=== PATIENT | male | born 1985 | race Caucasian/White ===

== ENCOUNTER 2020-01-04 15:10 | Observation (INO) | payer OTHER ==
[~2020-01-04] VITALS: Ht 162.6 cm; Wt 85.9 kg
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
--- NOTE | 2020-01-04 19:59 | NUR ---
DR DURAN CALLED AN UPDATED ON PTS CONTINUED AGITATION, UNWILLINGNESS TO KEEP LEADS OR BLOOD PRESSURE CUFF ON. LIME SLAKER AT BEDSIDE AT THIS TIME.
--- NOTE | 2020-01-04 20:00 | NUR ---
MANOJ HELD PER POISON CONTROL RECOMMENDATION. NOTIFIED.
--- NOTE | 2020-01-04 20:30 | NUR ---
4 MG OF PRN IV ATIVAN GIVEN AND PRECEDEX DRIP INITIATED AT 0.2 MCG/KG/HR FOR INCREASED PT AGITATION.
--- NOTE | 2020-01-04 20:54 | NUR ---
PT NOW RESTING WITH EYES CLOSED. BREATHING EVEN AND UNLABORED 22=23. SPO2 93% ON ROOM AIR. SIDE RAILS UP FOR SAFETY. PRECEDEX DRIP CONTINUES TO INFUSE AT 0.2 MCG/KG/HR. IV FLUIDS INFUSING. SECURITY NO LONGER AT [facility]. WILL CONTINUE TO CLOSELY MONITOR.
--- NOTE | 2020-01-04 22:30 | NUR ---
PRECEDEX DRIP CONTINUES TO INFUSE AT 0.1 MCG/KG/HOUR. PT REMAINS ASLEEP. RR =20. SPO2 = 93%. CALL LIGHT WITHIN REACH. BED ALARM ON.
--- NOTE | 2020-01-04 23:45 | NUR ---
PT REMAINS ASLEEP. RR=22 SPO2 = 94% ON RA. PRECEDEX REMAINS AT 0.1 MCG/KG/HR. IV FLUIDS CONTINUE TO INFUSE. PT REMAINS DIAPHORETIC. HEART RATE DOWN UNDER 100. CALL LIGHT WITHIN REACH AND BED ALARM IN PLACE. WILL CONTINUE TO MONITOR
--- NOTE | 2020-01-05 01:36 | NUR ---
ASSESSMENT COMPLETED. PRECEDEX DRIP PLACED ON STAND BY AT THIS TIME. PT GROANS IN RESPONSE TO VOICE AND THEN FALLS BACK TO SLEEP. SPO2 96% ON ROOM AIR. RESPIRATIONS EVEN AND UNLABORED AT REST. HEART RATE IN THE 90'S AT REST. LUNGS REMAIN CLEAR IN ALL AIR SALINAS. REPOSITIONED PT IN BED. CALL LIGHT WITHIN REACH. BED ALARM ON.
--- NOTE | 2020-01-05 02:30 | NUR ---
PT REPOSITIONING HIMSELF IN BED THEN FELL BACK ASLEEP. BREATHING REMAINS WNL. SPO2 = 95% ON ROOM AIR. BED ALARM ON. IV FLUIDS INFUSING. WILL CONTINUE TO MONITOR.
--- NOTE | 2020-01-05 03:37 | NUR ---
ASSESSMENT COMPLETED. ABLE TO AWAKE PT WITH VOICE. PT LESS DIAPHORETIC AND SHAKY THAN EARLIER IN THE SHIFT. PT AMBULATED TO BATHROOM TO VOID. ONE PERSON ASSIST REQUIRED. PT FOLLOWS COMMANDS. B ACK IN BED. CALL LIGHT WITHIN REACH. DENIES FURTHER NEEDS AT THIS TIME.
--- NOTE | 2020-01-05 05:10 | NUR ---
LAB IN ROOM TO DRAW BLOOD AT THIS TIME
--- NOTE | 2020-01-05 05:31 | NUR ---
PT CONTINUES TO SLEEP RR EVEN AND UNLABORED. SPO2 = 94% ON ROOM AIR. IV FLUIDS INFUSING. BED ALARM ON AND CALL LIGHT WITHIN REACH.
--- NOTE | 2020-01-05 07:30 | NUR ---
PATIENT SHIFT REPORT RECIEVED FROM CYLINDER TESTER RN. PATIENT RESTING IN BED AT THIS TIME. PER REPORT PRECEDEX GTT TURNED OFF AROUND 2AM. PATIENT IS ALERT AND ORIENTED AND FOLLOWING COMMANDS. WILL CONTINUE TO CLOSELY MONITOR.
--- NOTE | 2020-01-05 08:45 | NUR ---
ORDERED BREAKFAST FOR PATIENT. PATIENT FOLLOWING COMMANDS AND IS APPROPRIATE THIS AM. PATIENT BREATH SOUNDS CLEAR AND ON ROOM AIR. BOWEL TONES ACTIVE. PATIENT REPORTS HE IS HUNGRY THIS MORNING. PATIENT STATES "I FEEL MUCH BETTER THAN LAST NIGHT". DENIES ABD PAIN. NO OTHER NEEDS AT THIS TIME. WILL CONTINUE TO CLOSELY MONITOR. PATIENT EDUCATED NOT TO GET UP WITHOUT STAFF PRESENT. CALL LIGHT ON LAP.
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
--- NOTE | 2020-01-05 10:04 | NUR ---
Linens changed, room picked up, fresh water given, breakfast given. got pt up to chair. call light within reach, no other needs at this time.
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
--- NOTE | 2020-01-05 11:17 | NUR ---
MED REC COMPLETE
--- NOTE | 2020-01-05 11:17 | NUR ---
MED REC COMPLETE
--- NOTE | 2020-01-05 11:23 | NUR ---
ILIANA WITH [facility] HERE TO TALK WITH PATIENT AND OFFER ASSISTANCE. PATIENT REFUSED ASSISTANCE AT THIS TIME. ILIANA LEFT CARD WITH PATIENT IF HE CHANGES HIS MIND. PATIENT IS NOT READY FOR HELP AT THIS TIME. PATIENT RESTING IN THE CHAIR. LUNCH ORDERED. PER MD PATIENT MAY DISCHARGE. CASE MANAGEMENT WORKING WITH SERVICES AND ARRANGING A PLACE FOR PATIENT TO STAY TONIGHT. NO OTHER NEEDS AT THIS TIME. WILL CONTINUE TO CLOSELY MONITOR.
--- NOTE | 2020-01-05 13:00 | NUR ---
THIS RN IN TO GIVE PATIENT HIS LUNCH. PATIENT SITTING UP IN THE CHAIR. FRESH WATER PROVIDED. PATIENT HAS CONTINUED TO BE APPROPRIATE AND ALERT AND ORIENTD. NO SWEATING NOTED. PATIENT HAVE A DIFFICULT TIME PAYING ATTENTION AT TIMES. PATIENT DENEIS ANY OTHER NEEDS. CAMMODE NEXT TO PATIENT SO HE CAN STAND AND VOID ON HIS OWN. WILL CONTINUE TO CLSOELY MONITOR.
--- NOTE | 2020-01-05 13:37 | EKG ---
[facility] [address] [facility] [place], [place] [address] Signed Sinus tachycardia Otherwise normal ECG No previous ECGs available Confirmed by CHAZ DURAN DO ([id number]) on 01/05/2020 1:37:34 PM Electronically Signed By: CHAZ DURAN DO 01/05/20 1337 PATIENT NAME: TRACEE HARDING Electrocardiogram DATE OF : [birth year] PHYSICIAN: CHAZ DURAN DO REPORT #: [id number] REPORT IS CONFIDENTIAL AND NOT TO BE RELEASED WITHOUT AUTHORIZATION
--- NOTE | 2020-01-05 14:00 | NUR ---
Notified by Nuvia pt is refusing to dc, he does not want to go to [facility] as he feels this is a senior living and is dangerous. He is again stating he wants to go to [place]. [facility] Bus schedule checked and leaves at 5:34 pm. Discussed with Rn and pt can stay and have food, then dc by taxi to [facility] where the bus departs for a free ride to [place].
--- NOTE | 2020-01-05 14:15 | NUR ---
THIS RN IN TO DISCHARGE PATIENT. PATIENT REFUSING TO GO TO FACILITY HERE IN TOWN AT [facility] FOR SOMEWHERE TO STAY FOR THE EVENING SINCE HE IS BASELINE HOMLESS. PATIENT REQUESTING TO TAKE A BUS TO [place]. TOYIN RN UPDATED AND ASSISTED WITH FINDING A HOPPER BUS TO [place] AT 1730. PATIENT AGREEABLE TO PLAN OF CARE. WILL GET PATIENT A TAXI RIDE TO [facility]. NO OTHER NEEDS AT THSI TIME. WILL ALLOW PATIENT TO REST.
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
--- NOTE | 2020-01-06 02:37 | PATH ---
[facility] [address] [place], [place] [address] Signed ORDERING PHYSICIAN: Kike Bueno MD PATIENT NAME: TRACEE HARDING GENDER: M : 1985 Prior History: No cases found. SPECIMEN(S): No Source Given MOLECULAR PATHOLOGY RESULTS: SARS-CoV-2 Not Detected ADDITIONAL NOTES.: The [place] Fusion SARS-CoV-2 Assay is a multiplex real-time PCR (RT-PCR) in vitro diagnostic test intended for the qualitative detection of RNA from SARS-CoV-2 from individuals who meet COVID-19 clinical and/or epidemiological criteria. In general, SARS-CoV-2 RNA can be detected during the acute phase of infection. Positive results indicate the presence of SARS-CoV-2 RNA. Clinical correlation with patient history and other diagnostic information is necessary to determine patient infection status. Positive results do not rule out bacterial infection or co-infection with other viruses. Negative results do not preclude SARS-CoV-2 infection and should not be used as the sole basis for patient management decisions. Negative results must be combined with other clinical observations, patient history, and epidemiological information. The [place] Fusion SARS-CoV-2 Assay is not yet approved or cleared by the [place] FDA. When there are no FDA-approved or cleared tests available, and other criteria are met, FDA can make tests available under an emergency access mechanism called an Emergency Use Authorization (EUA). The EUA for this test is supported by the [place] of Health and Human Service's (HHS's) declaration that circumstances exist to justify the emergency use of in vitro diagnostics for the detection and/or diagnosis of the virus that causes COVID-19. This EUA will remain in effect for the duration of the COVID-19 declaration justifying emergency of IVDs, unless it is terminated or revoked by FDA, after which the test may no longer be used. The [place] Fusion SARS-CoV-2 Assay is for use only under EUA PATIENT NAME: TRACEE HARDING PATHOLOGY DATE OF : [birth year] REPORT #: [id number] PHYSICIAN: [facility] PCP: NO PRIMARY CARE PHYSICIAN REPORT IS CONFIDENTIAL AND NOT TO BE RELEASED WITHOUT AUTHORIZATION [facility] [address] [place], [place] [address] Signed in laboratories certified under the Clinical Laboratory Improvement Amendments of 1988 (CLIA) to perform high complexity tests. [facility] is certified under CLIA to perform high complexity clinical laboratory testing. Preethi Day PERFORMING LABORATORY.: Molecular testing was performed by [facility] [place] [address] ([employer]: Nik Canela D.O.; CLIA#: [id number]) Diagnostician: System Interface Pathologist Electronically Signed 01/06/2020 Copies: ~ PATIENT NAME: TRACEE HARDING LEE PATHOLOGY DATE OF : [birth year] REPORT #: [id number] PHYSICIAN: [facility] PCP: NO PRIMARY CARE PHYSICIAN REPORT IS CONFIDENTIAL AND NOT TO BE RELEASED WITHOUT AUTHORIZATION
== END 2020-01-05 16:10 | disposition home or self-care (01) ==
LOC: ED 15:10 → CCU 15:12
PROVIDERS: ADMIT Student in an Organized Health Care Education/Training Program; ATTEND Student in an Organized Health Care Education/Training Program
DX: M62.82 Rhabdomyolysis (principal); T43.621A Poisoning by amphetamines, accidental (unintentional), initial encounter; Z20.828 Contact with and (suspected) exposure to other viral communicable diseases
CPT/HCPCS: 36415; 51701; 71045; 80048; 80053; 81001; 82550; 83605; 83735; 84100; 84484; 85025; 93005; 93010; 96376; 99285-25; C9803; G0378; G0480; J2060; J7030; J7121; U0003